=== PATIENT | female | born 1980 | race Caucasian/White ===

== ENCOUNTER → 2017-05-29 | Outpatient (CLI) | payer OTHER ==
[~2017-05-29] MED LIST: AMOX1TAB12 PO; IBUP-1222 PO; SERT100T PO; SERT50TA PO
[2017-05-29 14:26] LABS: HCG UR LOT HCG7030192
[2017-05-29 14:30] LABS: HEMATOCRIT 39.7 % (34.6-47.8); HEMOGLOBIN 13.6 g/dL (11.7-16.4); WHITE BLOOD COUNT 5.2 x10^3/uL (3.4-10)
[2017-05-29 14:41] LABS: HCG UR OBC PASS
== END | disposition home or self-care (01) ==
LOC: STAR 13:36
PROVIDERS: ATTEND Obstetrics & Gynecology
DX: R39.15 Urgency of urination (principal)
CPT/HCPCS: 36415; 81003; 81025; 85025